=== PATIENT | female | born 1975 | race Two or more races ===

== ENCOUNTER 2024-06-14 05:08 | Inpatient (IN) | payer MEDICAID, SELFPAY ==
[2024-06-14] VITALS (15 sets, daily range): BP systolic 123–155; BP diastolic 60–94; PULSE 66–86; RESP 12–18; TEMP 36.4–36.8; O2SAT 95–98; BMI 34.1
[2024-06-14] MEDS: RINGERS LACTATED 1000 ML 1,000 ML 100 ML IV ×2 (05:45→06:52)
[2024-06-14 06:30] LABS: Basophils % (Auto) 1 % (0-2.5); Eosinophils # (Auto) 0.2 Thou/mm3 (0.0-0.5); Eosinophils % (Auto) 3 % (0-10); Hematocrit 33.5 % (36.0-46.0); Hemoglobin 11.2 g/dL (12.0-16.0); Immature Granulocytes % (Auto) 2 % (0-0); Lymphocytes # (Auto) 1.8 Thou/mm3 (1.0-4.8); Lymphocytes % (Auto) 32 % (10-50); Mean Corpuscular HGB Conc 33.4 g/dl (31.0-37.0); Mean Corpuscular Hemoglobin 28.4 pg (25.0-35.0); Mean Corpuscular Volume 85 fL (80-100); Monocytes # (Auto) 0.6 Thou/mm3 (0.0-0.8); Monocytes % (Auto) 11 % (0-12); Neutrophils % (Auto) 52 % (37-80); Nucleated Red Blood Cell % 0 /100 WBC (0); Platelet Count 258 Thou/mm3 (140-440); RDW Standard Deviation 39.9 fL (36.4-46.3); Red Blood Count 3.95 Miln/mm3 (4.00-5.20); White Blood Count 5.8 Thou/mm3 (3.6-11.0)
[2024-06-14 07:06] LABS: Syphilis Nonreactive (Nonreactive)
[2024-06-14] MEDS: FAMOTIDINE INJ 10 MG/ML VIAL 2 ML 20 MG IV (07:09)
[2024-06-14] MEDS: ceFAZolin/D5W 2 GM IV 2 GM/100 ML BAG IV (07:09)
[2024-06-14] MEDS: CITRIC ACID/SODIUM CITR 15 ML UDC (BICITRA) 30 ML PO (07:09)
--- NOTE | 2024-06-14 07:42 | PD.LDHP ---
Documentation for date of: 06/14/24 OB Labor/Induct. HPI History of Present Illness : 12 Term pregnancies: 8 pregnancies: 0 Living children: 8 History of Abortions: Spontaneous and Elective: 3 History of sections: No History of : No History of present illness: 48-year-old 12 para 8-0-3-8 at 39 weeks and 3 days admitted for a primary low-transverse as per patient's choice. Patient and her since the first visit of care with adamant about the patient having primary because of a vaginoplasty done in [facility]. Patient had all previous vaginal deliveries and was counseled extensively regarding risk of including prolonged recovery. However patient strongly desires a primary low-transverse otherwise care has been uncomplicated History of Present Dating criteria: LMP confirmed by 1st trimester US Adequate Care: Yes Labs Labs: Negative: Hepatitis B, HIV, Chlamydia, Gonorrhea and Group Beta Strep Past Medical History Surgical History SURGICAL: Negative Section Meds Home Medications and Allergies Home Medications ?Medication ?Instructions ?Recorded ?Confirmed ?Type vit no.133-ferrous 1 tab PO QDAY 09/03/17 06/14/24 History fumarate 28 mg-folic acid 800 mcg tablet () famotidine 20 mg tablet (Pepcid) 20 mg PO PRN PRN Acid Reflux 03/15/24 06/14/24 History Allergies Allergy/AdvReac Type Severity Reaction Status Date / Time Pork/Porcine Containing Allergy Unknown Verified 06/14/24 07:08 Products OB Exam Physical Exam Vital signs: Temp Pulse Resp BP 98.3 F 77 16 141/89 H 06/14/24 05:44 06/14/24 07:07 06/14/24 05:44 06/14/24 07:07 Constitutional Constitutional: no acute distress Routine HEENT Exam Head: Present normocephalic and atraumatic Eye: Present EOMI and PERRL ENT: Present mucous membranes moist Routine Neck Exam Neck: Present supple and trachea midline Routine Cardiovascular Exam Cardiovascular: Present RRR Routine Abdominal Exam Abdominal: Present soft and normoactive bowel sounds Detailed Labor and Delivery Exam Comments: Not in labor heart tone category 1 Occasional contractions Routine Extremities Exam Extremities: Present full ROM Routine Skin Exam Skin: Present intact, dry and warm Routine Neurological Exam Neurological: Present alert, oriented X3 and CN II-XII intact Routine Psychiatric Exam Psychiatric: Present normal affect and normal thought process OB Results Labs 06/14/24 05:55 Labs: Short CBC 06/14/24 Range/Units 05:55 WBC 5.8 (3.6-11.0) Thou/mm3 Hgb 11.2 L (12.0-16.0) g/dL Hct 33.5 L (36.0-46.0) % Plt Count 258 (140-440) Thou/mm3 Impressions Impression: 48-year-old 12 para 8-0-3-8 at 39 weeks and 3 days admitted for a primary low-transverse , elective as per patient choice History of vaginoplasty Grand multiparity patient has been counseled regarding risk of hemorrhage Hemoglobin is 11.2, 2 units on hold Advanced maternal age NIPT within normal limits, NT normal, anatomy normal placenta a right anterior lateral GTT within normal Blood pressure is elevated in this admission No symptoms of preeclampsia OB Assessment & Plan Additional Plan Additional Plan Comment: Preeclampsia labs pending Primary low-transverse IV antibiotics DVT prophylaxis
--- NOTE | 2024-06-14 08:38 | PD.GYNPROC ---
Operative Note - ACCOUNTS RECEIVABLE REPRESENTATIVE Procedure Date of procedure: 06/14/24 Procedure Performed: Primary low-transverse Indication: Elective per patient desires History of vaginoplasty Pre-Op diagnosis: Same Post-Op diagnosis: Same Anesthesia type: Spinal Procedure description: Informed consent was obtained and the patient was taken to the operating room.? Identity was confirmed by double identifiers and she was placed on the operating table.The abdomen and perineum were prepped in the usual sterile fashion and a Cintron catheter was placed to continuous drainage.? Sterile drapes were applied.??A Pfannenstiel skin incision was made with a scalpel and carried to the subcutaneous fat up to the rectus fascia.? The rectus fascia was incised on either side of the midline and the incisions were extended bilaterally.? The fascia was gently dissected off the ventral surface of the rectus muscle both superiorly and inferiorly. Carefully a peritioneal window craeted hysterotomy incision made and extended bluntly with finger. Rupture of membranes revealed clear fluid. The baby was found in cephalic position delivered via vertex. The umbilical cord , was doubly clamped, divided and the infant was handed over to the waiting team.? placenta delivered by controlled cord traction . The interior of the uterus was now thorougly cleaned of all blood and debris and membranes.? 2 cavities and the uterus verified the? hysterotomy was closed using 0 vicryl suture in double layers. Once the repair was completed the hysterotomy was inspected, was noted to be adequately hemostatic . Muscle oozing stopped by bovie. The rectus fascia was repaired using Vicry 0 in a running fashion.? The subcutaneous layer was now, approximated with 3-0 vicryl in double layers.? All bleeding points were cauterized using the Bovie.?The skin was closed using 4-0 Monocryl in a subcuticular fashion.? The skin was cleaned and a sterile dressing was applied. The patient was now undraped, the abdomen and back were thoroughly cleaned and she was now transferred to the recovery room in a stable Estimated blood loss (ml): 300 Surgical staff Operation Date: 06/14/24 07:45 Case Staff PUBLIC HEALTH PROGRAM MANAGER: Madiha Rivero RN First Assistant: Kalani Sagastume Diagnosis Problem List Completed Was Problem List Reviewed/Reconciled?: Yes
--- NOTE | 2024-06-14 08:39 | OBDSUM_ITS ---
Data (Amin) Data Hx Section: No : 12 Para: 8 Term: 8 : 0 : 3 Delivery Data (Amin) Labor Data ROM Date: 06/14/24 ROM Time: 08:07 Rupture Type: AROM Amniotic Fluid: Clear Delivery Data Labor Onset Stage 1 Date: 06/14/24 Labor Onset Stage 1 Time: 08:07 Labor Onset Stage 2 Date: 06/14/24 Labor Onset Stage 2 Time: 08:07 Delivery Date: 06/14/24 Delivery Time: 08:07 Gestational age (weeks): 39 Gestational age (days): 3 Placenta Delivery Date: 06/14/24 Placenta Delivery Time: 08:08 Delivered by: Lelo Doran Delivery nurse: Brittnee Robert Other staff at delivery: Nursery Nurse Other staff at delivery: Anita Fraga Delivery Method Delivery: Delivery Type: Primary Anesthesia Type Primary Anesthesia: Spinal Delivery Room Medications Other Intrapartum Medications: Yes Placenta Placenta Delivery: Manual Cord Sample: Cord Blood Obtained EBL Estimated blood loss (ml): 300 Umbilical Cord Umbilical Vessels: 3 Nuchal Cord: None Body Cord: None [place] Data (Amin) Data Gender: Female Weight Grams: 3985 1 Minute Total: 9 5 Minute Total: 9
[2024-06-14] MEDS: OXYTOCIN in NS 20 UNIT/1,000 ML BAG IV ×2 (08:50→18:14)
[2024-06-14 09:30] LABS: Collection Type, Urine Clean Catch
[2024-06-14 09:44] LABS: Bilirubin,Urine Negative (Negative); Blood,Urine 2+ (Negative); Clarity,Urine Clear (Clear/Hazy); Color,Urine Lt-Yellow (Lt Yel-Yel); Glucose, Urine Negative (Negative); Ketones,Urine Negative (Negative); Leukocyte Esterase,Urine Negative (Negative); Nitrite,Urine Negative (Negative); PH,Urine 7.5 (5.0-7.0); Protein,Urine Negative (Neg - Trace); RBC,Urine 20 /hpf (0-3); Specific Gravity,Urine 1.016 (1.001-1.035); Squamous Epithelial Cell,Urine 1 /hpf (0-5); Urobilinogen,Urine Negative mg/dL (0.0-1.0); WBC,Urine 1 /hpf (0-5)
[2024-06-14 10:03] LABS: Fibrinogen 369 mg/dL (175-375); INR 0.9 (0.9-1.3); Partial Thromboplastin Time 24.5 Seconds (22.0-36.0); Prothrombin Time 10.3 Seconds (9.0-12.2)
[2024-06-14 10:06] LABS: Uric Acid 4.3 mg/dL (3.1-7.8)
[2024-06-14 10:35] LABS: Alanine Aminotransferase 7 U/L (10-49); Albumin, Serum 3.4 gm/dL (3.5-5.0); Albumin/Globulin Ratio 1.4 (1.2-2.2); Alkaline Phosphatase 116 U/L (46-116); Anion Gap 7 (7-16); Aspartate Amino Transferase 10 U/L (0-34); BUN/Creatinine Ratio 14 Ratio (12-20); Bilirubin,Total 0.7 mg/dL (0.3-1.2); Blood Urea Nitrogen 7 mg/dL (9-23); Calcium 8.1 mg/dL (8.3-10.6); Calcium (Corrected) 8.6 mg/dL (8.5-10.1); Chloride 104 mMol/L (98-107); Creatinine (Component) 0.5 mg/dL (0.6-1.3); Estimated Creatinine Clearance 202.4 mL/min (>60); Globulin 2.4 gm/dL (2.3-3.5); Glucose 75 mg/dL (74-106); Osmolality,Calculated 268 (275-295); Potassium 4.2 mMol/L (3.4-5.1); Sodium 136 mMol/L (136-145); Total Protein 5.8 gm/dL (5.7-8.2); eGFR > 60 See Note
[2024-06-14 13:48] LABS: Basophils % (Auto) 0 % (0-2.5); Eosinophils % (Auto) 0 % (0-10); Hematocrit 34.4 % (36.0-46.0); Hemoglobin 11.4 g/dL (12.0-16.0); Immature Granulocytes % (Auto) 1 % (0-0); Immature Granulocytes Auto 0.12 Thou/mm3 (0.00-0.00); Lymphocytes % (Auto) 7 % (10-50); Mean Corpuscular HGB Conc 33.1 g/dl (31.0-37.0); Mean Corpuscular Hemoglobin 28.2 pg (25.0-35.0); Mean Corpuscular Volume 85 fL (80-100); Monocytes # (Auto) 0.4 Thou/mm3 (0.0-0.8); Monocytes % (Auto) 3 % (0-12); Neutrophils # (Auto) 12.7 Thou/mm3 (1.8-7.7); Neutrophils % (Auto) 89 % (37-80); Nucleated Red Blood Cell % 0 /100 WBC (0); Platelet Count 255 Thou/mm3 (140-440); RDW Standard Deviation 40.1 fL (36.4-46.3); Red Blood Count 4.04 Miln/mm3 (4.00-5.20); White Blood Count 14.2 Thou/mm3 (3.6-11.0)
[2024-06-14] MEDS: IBUPROFEN TAB 400 MG TABLET 800 MG PO (20:28)
[2024-06-15] VITALS (7 sets, daily range): BP systolic 124–138; BP diastolic 70–86; PULSE 80–95; RESP 16–18; TEMP 36.7–37; O2SAT 95–97
[2024-06-15 05:38] LABS: Basophils % (Auto) 0 % (0-2.5); Eosinophils % (Auto) 0 % (0-10); Hematocrit 26.5 % (36.0-46.0); Immature Granulocytes % (Auto) 1 % (0-0); Immature Granulocytes Auto 0.16 Thou/mm3 (0.00-0.00); Lymphocytes # (Auto) 2.3 Thou/mm3 (1.0-4.8); Lymphocytes % (Auto) 16 % (10-50); Mean Corpuscular HGB Conc 33.2 g/dl (31.0-37.0); Mean Corpuscular Hemoglobin 28.6 pg (25.0-35.0); Mean Corpuscular Volume 86 fL (80-100); Monocytes # (Auto) 1.5 Thou/mm3 (0.0-0.8); Monocytes % (Auto) 11 % (0-12); Neutrophils # (Auto) 10.4 Thou/mm3 (1.8-7.7); Neutrophils % (Auto) 72 % (37-80); Nucleated Red Blood Cell % 0 /100 WBC (0); Platelet Count 226 Thou/mm3 (140-440); RDW Standard Deviation 40.1 fL (36.4-46.3); Red Blood Count 3.08 Miln/mm3 (4.00-5.20); White Blood Count 14.4 Thou/mm3 (3.6-11.0)
[2024-06-15 05:46] LABS: Hemoglobin 8.8 g/dL (12.0-16.0)
[2024-06-15] MEDS: IBUPROFEN TAB 400 MG TABLET 800 MG PO ×2 (06:11→21:28)
[2024-06-15] MEDS: Milk Of Magnesia Susp 30 ML UDC PO (06:41)
[2024-06-15] MEDS: SIMETHICONE 80 MG CHEW PO ×2 (06:41→21:28)
[2024-06-15] MEDS: DOCUSATE SOD 100 MG CAPSULE PO (09:30)
[2024-06-15] MEDS: ACETAMINOPHEN 325 MG TABLET 650 MG PO (17:49)
--- NOTE | 2024-06-15 21:40 | PC.NURSE ---
Surgical dressing removed, no s/sx of infection noted, patient tolerated well.
[2024-06-16] MEDS: HYDROcodone/APAP 5/325 TABLET 2 TAB PO (01:33)
[2024-06-16 05:21] VITALS: BP 116/74; PULSE 79; RESP 17; TEMP 36.6; O2SAT 97
[2024-06-16] MEDS: IBUPROFEN TAB 400 MG TABLET 800 MG PO (06:00)
[2024-06-16] MEDS: Milk Of Magnesia Susp 30 ML UDC PO (06:03)
[2024-06-16 07:23] VITALS: BP 133/86; PULSE 92; RESP 20; TEMP 36.8; O2SAT 97
[2024-06-16] MEDS: DOCUSATE SOD 100 MG CAPSULE PO (08:46)
--- NOTE | 2024-06-16 11:16 | PD.LDPPPRG ---
Subjective Subjective Interval history: Patient seen at the bedside doing well denies any nausea vomiting, fever. Patient has been ambulating. Patient has been breast-feeding baby at bedside Exam Vital Signs Temp Pulse Resp BP Pulse Ox O2 Del Method 98.2 F 92 20 133/86 H 97 Room Air 06/16/24 07:23 06/16/24 07:23 06/16/24 07:23 06/16/24 07:23 06/16/24 07:23 06/16/24 07:23 Constitutional Constitutional: no acute distress Routine HEENT Exam Head: Present normocephalic and atraumatic Eye: Present EOMI and PERRL ENT: Present mucous membranes moist Routine Neck Exam Neck: Present supple and trachea midline Routine Respiratory Exam Respiratory: Present chest non-tender, lungs clear, normal breath sounds and no resp distress Routine Cardiovascular Exam Cardiovascular: Present RRR Routine Abdominal Exam Abdominal: Present soft and normoactive bowel sounds Routine Extremities Exam Extremities: Present full ROM Routine Skin Exam Skin: Present intact, dry and warm Routine Neurological Exam Neurological: Present alert, oriented X3 and CN II-XII intact Routine Psychiatric Exam Psychiatric: Present normal affect and normal thought process Objective Labs 06/15/24 04:55 06/14/24 09:11 Assessment & Plan Assessment Comment Assessment comment: 48-year-old s/p primary low-transverse for history of vaginoplasty, elective per patient's desire, postop day 1 Vital signs stable Hemoglobin appropriate Meeting all postop milestones Plan Comment Plan Comment: Anticipate discharge tomorrow Continue inpatient care Time Spent With Patient Time: Total time spent is greater than 50% in coordination of care (as documented) at patient's floor/unit and/or counseling patient:
--- NOTE | 2024-06-16 11:17 | ESDS_ITS ---
DS: Providers Provider Date of admission: 06/14/24 05:08 Primary care physician: Physician No Primary/Family Admitting Provider: Lelo Doran MD Attending Provider on Admission: Lelo Doran MD Consults: 06/14/24 07:50 Referral Routine Comment: Attending Provider on DC: Lelo Doran MD Discharging Provider: Lelo Doran MD DS: Diagnosis Problem List Completed Was Problem List Reviewed/Reconciled?: Yes Summary/Hosp Course Brief History: 48-year-old 12 para 9 s/p primary low-transverse per patient desire for history of vaginoplasty has been doing well. Has met all postop milestones including passing gas. Can be discharged home today stable Peripartum Data Procedures: Procedures Operation Date: 06/14/24 07:45 Actual Procedure Side Surgeon p in OB Not Applicable Lelo Doran MD Status at Discharge Cognitive/behavioral status at discharge: Stable Time Spent with Patient Time attestation: Total time spent providing and/or coordinating discharge services: Exam Vital Signs Temp Pulse Resp BP Pulse Ox O2 Del Method 98.2 F 92 20 133/86 H 97 Room Air 06/16/24 07:23 06/16/24 07:23 06/16/24 07:23 06/16/24 07:23 06/16/24 07:23 06/16/24 07:23 Constitutional Constitutional: no acute distress Routine HEENT Exam Head: Present normocephalic and atraumatic Eye: Present EOMI and PERRL ENT: Present mucous membranes moist Routine Neck Exam Neck: Present supple and trachea midline Routine Respiratory Exam Respiratory: Present chest non-tender, lungs clear, normal breath sounds and no resp distress Routine Cardiovascular Exam Cardiovascular: Present RRR Routine Abdominal Exam Abdominal: Present soft and normoactive bowel sounds Routine Extremities Exam Extremities: Present full ROM Routine Skin Exam Skin: Present intact, dry and warm Routine Neurological Exam Neurological: Present alert, oriented X3 and CN II-XII intact Routine Psychiatric Exam Psychiatric: Present normal affect and normal thought process Discharge Plan Plan Patient Disposition: HOME (Self Care) Prescriptions/Referrals Prescriptions/Med Rec: New acetaminophen-codeine 300-15 mg tablet 1 tab PO Q12H PRN (Reason: pain) Qty: 14 0RF ibuprofen 800 mg tablet 800 mg PO Q8H PRN (Reason: pain) Qty: 20 0RF No Action 28-800 mg-mcg Tablet 1 tab PO QDAY famotidine [Pepcid] 20 mg Tablet 20 mg PO PRN PRN (Reason: Acid Reflux) Referrals: No Primary/Family,Physician [Primary Care Provider] - Patient/Caregiver Discharge Instructions Education Materials: C Section Dc Print Language: Georgian Stand Alone Forms: Criselda Award Info., Patient Portal Info Letter Discharge Order Discharge Orders: Discharge (Routine); Ordered 06/16/24 Ordered By: Lelo Doran Planned Discharge Date 06/16/24
== END 2024-06-16 11:55 | disposition home or self-care (01) | DRG 540 ==
LOC: S4SX 08:19 → S4NX 08:42
PROVIDERS: Admitting Provider Student in an Organized Health Care Education/Training Program; Visit Provider Student in an Organized Health Care Education/Training Program
PROC: 10D00Z1 Extraction of Products of Conception, Low, Open Approach (ICD-10-PCS; CPT 59514; principal; 2024-06-14 07:30)
DX: O75.89 Other specified complications of labor and delivery (principal); Z3A.39 39 weeks gestation of pregnancy; Z37.0 Single live birth
CPT/HCPCS: 36415; 59409; 80053; 81001; 82570; 84156; 84550; 85025; 85384; 85610; 85730; 86780; 86850; 86900; 86901; 86923; 94762; J0689; J1100; J1885; J2274; J2371; J2405; J2590; J3010; J3490; J7120; A9270; J2270